=== PATIENT | male | born 1965 | race Hispanic/Latino ===

== ENCOUNTER 2017-07-31 13:48 | Inpatient (IN) | payer SELFPAY ==
[~2017-07-31] VITALS: Ht 162.6 cm; Wt 90.7 kg
[2017-07-31] MEDS ORDERED: SODIUM CHLORIDE 0.9% 1000ML 1,000 ML IV STA (13:50)
[2017-07-31] MEDS ORDERED: INSULIN REGULAR, HUMAN 100 UNIT/1 ML 3ML VIAL IV STA (14:01)
[2017-07-31] MEDS ORDERED: INSULIN REGULAR, HUMAN 100 UNIT/1 ML 3ML VIAL SQ ONE (14:15)
[2017-07-31 14:16] LABS: BASOPHILS # (AUTO) 0.1 (0.0-0.1); BASOPHILS % 0.6 % (0.0-1.0); EOSINOPHILS % 0.2 % (0.0-6.0); HEMATOCRIT 41.7 % (38.2-49.6); HEMOGLOBIN 14.7 g/dL (14.0-18.0); LYMPHOCYTES # (AUTO) 1.9 (1.0-3.2); LYMPHOCYTES % 20.2 % (18.0-39.1); MEAN CORPUSCULAR HEMOGLOBIN 31.2 pg (28-32); MEAN CORPUSCULAR HGB CONC 35.3 g/dL (31-35); MEAN CORPUSCULAR VOLUME 88.5 fL (81-99); MONOCYTES # (AUTO) 0.6 (0.2-0.8); MONOCYTES % 6.1 % (4.4-11.3); NEUTROPHILS # (AUTO) 6.8 (2.1-6.9); NEUTROPHILS % 72.5 % (38.7-80.0); PLATELET COUNT 293 x10e3/uL (140-360); RED BLOOD COUNT 4.71 x10e6/uL (4.3-5.7); RED CELL DISTRIBUTION WIDTH 11.9 % (11.7-14.4)
[2017-07-31 14:25] LABS: CLARITY,URINE CLEAR (CLEAR); COLOR,URINE YELLOW (YELLOW); LEUKOCYTE ESTERASE ,URINE NEGATIVE (NEGATIVE); NITRITE,URINE NEGATIVE (NEGATIVE); PROTEIN,URINE DIPSTICK NEGATIVE (NEGATIVE)
[2017-07-31 14:26] LABS: BILIRUBIN,URINE NEGATIVE (NEGATIVE); KETONES,URINE NEGATIVE (NEGATIVE); URINE UROBILINOGEN 0.2 mg/dL (0.2 - 1)
[2017-07-31 14:35] LABS: ALBUMIN 3.9 g/dL (3.5-5.0); ALBUMIN/GLOBULIN RATIO 0.8 (0.8-2.0); ANION GAP 16.4 mmol/L (8-16); CALCIUM 9.6 mg/dL (8.4-10.2); CREATININE, SERUM 1.89 mg/dL (0.72-1.25); POTASSIUM 4.4 mmol/L (3.5-5.1)
[2017-07-31 14:38] LABS: MUCUS,URINE FEW (RARE); RBC,URINE 0-5 /HPF (0-5); WBC,URINE (MAN) 0-5 /HPF (0-5)
[2017-07-31] MEDS ORDERED: ONDANSETRON HCL INJ 2 MG/ML VIAL IV PRN (15:30)
[2017-07-31] MEDS ORDERED: DEXTROSE 50% SYRINGE 50 ML IV PRN ×5 (15:30→18:15)
--- OUTSIDE RECORDS SUMMARY | 2017-07-31 15:43 | XMS REPORT ---
Author Author [facility] Address Unknown Phone Unavailable Care Team Providers Care Ladle Builder Name Role Phone Unavailable Unavailable Problems This patient has no known problems. Allergies, Adverse Reactions, Alerts This patient has no known allergies or adverse reactions. Medications This patient has no known medications. Encounters Start Date/Time End Date/Time Encounter Type Admission Type Attending [facility] Care Department Encounter ID 2017-08-15 00:00:00 2017-08-15 00:00:00 Outpatient [facility] [id number] 2017-08-04 00:00:00 2017-08-04 00:00:00 Outpatient [facility] [id number] 2017-08-01 00:00:00 2017-08-01 00:00:00 Outpatient [facility] [id number] 2017-07-30 14:34:59 2017-07-30 14:34:59 Outpatient [facility] [id number] 2017-07-30 12:53:01 2017-07-30 12:53:01 Outpatient [facility] [id number] 2017-05-26 06:46:48 2017-05-26 06:46:48 Outpatient [facility] [id number] 2017-03-06 13:25:15 2017-03-06 13:25:15 Outpatient [facility] [id number] 2016-10-28 13:19:03 2016-10-28 13:19:03 Outpatient [facility] [id number] 2016-10-03 15:18:27 2016-10-03 15:18:27 Outpatient [facility] [id number]
[2017-07-31] MEDS: SODIUM CHLORIDE 0.9% 1000ML 1,000 ML IV SCH ×2 (16:01→20:17)
[2017-07-31] MEDS ORDERED: BENZONATATE100 MG PO (16:04)
[2017-07-31] MEDS ORDERED: CETIRIZINE HCL5 MG (16:04)
[2017-07-31] MEDS ORDERED: NORVASC5 MG PO (16:04)
[2017-07-31] MEDS ORDERED: LEVOTHYROXINE50 MCG PO (16:04)
[2017-07-31] MEDS ORDERED: LISINOPRIL10 MG PO (16:06)
[2017-07-31] MEDS ORDERED: HYDROCHLOROTHIA25 MG (16:06)
[2017-07-31] MEDS ORDERED: ATORVASTATIN CA20 MG PO (16:06)
[2017-07-31] MEDS ORDERED: ONDANSETRON HCL 4 MG ORAL DISINTEGRATING TAB PO PRN (16:15)
[2017-07-31] MEDS ORDERED: INSULIN REGULAR, HUMAN 3ML VL 100 UNIT in SODIUM CHLORIDE 0.45% 100 ML 99 ML IV SCH ×2 (16:20)
[2017-07-31] MEDS ORDERED: INSULIN REGULAR, HUMAN 100 UNIT/1 ML 3ML VIAL SQ SCH (16:30)
[2017-07-31 19:41] VITALS: BP 132/93
[2017-07-31 20:00] VITALS: BP 125/75
[2017-07-31] MEDS ORDERED: INSULIN DETEMIR 100 UNIT/ML PEN SQ SCH (21:00)
[2017-07-31] MEDS: INSULIN LISPRO 100 UNIT/1 ML 3ML VIAL SQ SCH (21:21)
[2017-08-01] VITALS: BP 115/66
[2017-08-01] MEDS: SODIUM CHLORIDE 0.9% 1000ML 1,000 ML IV SCH ×2 (03:02→21:15)
[2017-08-01 04:00] VITALS: BP 131/72
[2017-08-01 06:14] LABS: BASOPHILS # (AUTO) 0.1 (0.0-0.1); BASOPHILS % 0.5 % (0.0-1.0); EOSINOPHILS # (AUTO) 0.1 (0.0-0.4); EOSINOPHILS % 1.1 % (0.0-6.0); HEMATOCRIT 37.2 % (38.2-49.6); HEMOGLOBIN 13.2 g/dL (14.0-18.0); MEAN CORPUSCULAR HEMOGLOBIN 31.2 pg (28-32); MEAN CORPUSCULAR HGB CONC 35.5 g/dL (31-35); MEAN CORPUSCULAR VOLUME 87.9 fL (81-99); MONOCYTES # (AUTO) 0.8 (0.2-0.8); MONOCYTES % 7.6 % (4.4-11.3); NEUTROPHILS # (AUTO) 6.3 (2.1-6.9); NEUTROPHILS % 61.1 % (38.7-80.0); PLATELET COUNT 253 x10e3/uL (140-360); RED BLOOD COUNT 4.23 x10e6/uL (4.3-5.7); RED CELL DISTRIBUTION WIDTH 11.8 % (11.7-14.4)
[2017-08-01 06:44] LABS: BLOOD UREA NITROGEN 18 mg/dL (7-26); BUN/CREATININE RATIO 17 (6-25); CALCIUM 8.5 mg/dL (8.4-10.2); CARBON DIOXIDE 26 mmol/L (22-29); CHLORIDE 101 mmol/L (98-107); CREATININE, SERUM 1.04 mg/dL (0.72-1.25); EST GLOMERULAR FILTRATION RATE > 60 ML/MIN (60-); GLUCOSE 221 mg/dL (74-118); SODIUM 134 mmol/L (136-145)
--- NOTE | 2017-08-01 07:04 | Diagnostic Imaging Report ---
EXAMINATION: CHEST SINGLE (PORTABLE) INDICATION: Diabetes. COMPARISON: None FINDINGS: TUBES and LINES: None. LUNGS: Lungs are well inflated. Lungs are clear. There is no evidence of pneumonia or pulmonary edema. PLEURA: No pleural effusion or pneumothorax. HEART AND MEDIASTINUM: The cardiomediastinal silhouette is unremarkable. BONES AND SOFT TISSUES: No acute osseous lesion. Soft tissues are unremarkable. UPPER ABDOMEN: No free air under the diaphragm. IMPRESSION: No acute thoracic abnormality. Signed by: Dr. Ramirez Beltrán M.D. on 08/01/2017 7:00 AM
[2017-08-01] MEDS ORDERED: INSULIN LISPRO 100 UNIT/1 ML 3ML VIAL SQ SCH ×2 (07:30→16:30)
[2017-08-01 08:00] VITALS: BP 171/106
[2017-08-01 08:40] LABS: ANISOCYTOSIS SLIGHT; LYMPHOCYTES % (MANUAL) 33 % (19-48); MONOCYTES % (MANUAL) 5 % (3.4-9.0); NEUTROPHILS % (MANUAL) 61 % (40-74); PLATELET ESTIMATE ADEQUATE; PLATELET MORPHOLOGY COMMENT NORMAL; RBC MORPHOLOGY COMMENT NORMAL
[2017-08-01] MEDS: INSULIN LISPRO 100 UNIT/1 ML 3ML VIAL SQ SCH ×6 (08:49→21:20)
[2017-08-01 12:00] VITALS: BP 138/94
[2017-08-01 12:47] LABS: FREE T4 (FREE THYROXINE) 1.24 ng/dL (0.9-1.8); THYROID STIMULATING HORMONE 1.717 uIU/mL (0.350-4.940)
--- NOTE | 2017-08-01 13:44 | Consultation ---
DATE OF CONSULTATION: August 01, 2017 ENDOCRINE CONSULTATION This is a patient of Dr. Brothers. Thank you very much for referring this patient. This is a 52-year-old gentleman who was referred to me for evaluation of uncontrolled diabetes mellitus. Patient tells me he is a known diabetic for the last several years and has been taking metformin. He was seen by one of the [facility] and was instructed that the blood sugar was extremely high. He was sent to the emergency room. In the emergency room, his blood sugar was 82, and anion gap was 16.4. The patient is also status post a CVA. Has history of hypertension and hyperlipidemia. The patient has been started on insulin here in the hospital. PHYSICAL EXAMINATION GENERAL: Today, the patient is alert, awake, a little bit apprehensive. He is moderately overweight. VITALS: His heart rate is around 78. Blood pressure 170/100. CHEST: Bilateral vesicular breathing. No rales heard. CARDIAC: First and 2nd heart sounds. There is no 3rd or 4th heart sound. Ejection systolic murmur grade 2/6. EXTREMITIES: Patient has evidence of diabetic sensory neuropathy in both lower extremities. ABDOMEN: He has a distended abdomen and umbilical hernia. CLINICAL IMPRESSION 1. Diabetes mellitus, type 2, uncontrolled with complications. 2. Status post cerebrovascular accident. 3. Hypertension. 4. Hyperlipidemia. The plan at this time is to do hemoglobin A1c and thyroid function test. Patient cannot afford the Levemir and Humalog insulin, so we will just put him on NPH and regular insulin. Thanks for referring this patient. Job#: [id number] RAUDEL ANGEOL
[2017-08-01 16:00] VITALS: BP 126/81
[2017-08-01 20:00] VITALS: BP 149/91
[2017-08-01] MEDS ORDERED: INSULIN DETEMIR 100 UNIT/ML PEN SQ SCH (21:00)
[2017-08-02] VITALS: BP 126/75
[2017-08-02 04:00] VITALS: BP 138/77
[2017-08-02] MEDS: SODIUM CHLORIDE 0.9% 1000ML 1,000 ML IV SCH ×2 (06:09→07:27)
[2017-08-02 08:00] VITALS: BP 134/94
== END 2017-08-02 11:50 | disposition home or self-care (01) | DRG 639 ==
LOC: ER 13:48 → ERHOLD 15:40 → MED/SURG2 18:25
DX: E11.65 Type 2 diabetes mellitus with hyperglycemia (principal); E78.5 Hyperlipidemia, unspecified; Z86.73 Personal history of transient ischemic attack (TIA), and cerebral infarction without residual deficits; E11.40 Type 2 diabetes mellitus with diabetic neuropathy, unspecified; Z79.84 Long term (current) use of oral hypoglycemic drugs
CPT/HCPCS: 36415; 71045; 80048; 80053; 81001; 82948; 83036; 84439; 84443; 85025; 99284; J7030

== ENCOUNTER 2018-01-02 21:27 | Emergency (ER) | payer MEDICARE, OTHER ==
[~2018-01-02] VITALS: Ht 162.6 cm; Wt 90.7 kg
[~2018-01-02 21:27] MED LIST: ATORVASTATIN CA20 MG PO; BENZONATATE100 MG PO; CETIRIZINE HCL5 MG; HYDROCHLOROTHIA25 MG; LEVOTHYROXINE50 MCG PO; LISINOPRIL10 MG PO; NORVASC5 MG PO
[2018-01-02] MEDS ORDERED: NITROGLYCERIN 2% OINT 1 GM PKT TOP ONE (22:00)
[2018-01-02] MEDS ORDERED: ASPIRIN 81 MG CHEW TAB PO ONE (22:00)
[2018-01-02 22:05] LABS: BASOPHILS # (AUTO) 0.1 (0.0-0.1); BASOPHILS % 0.6 % (0.0-1.0); EOSINOPHILS # (AUTO) 0.1 (0.0-0.4); EOSINOPHILS % 0.4 % (0.0-6.0); HEMATOCRIT 41.7 % (38.2-49.6); HEMOGLOBIN 13.9 g/dL (14.0-18.0); LYMPHOCYTES # (AUTO) 2.9 (1.0-3.2); LYMPHOCYTES % 19.8 % (18.0-39.1); MEAN CORPUSCULAR HEMOGLOBIN 31.2 pg (28-32); MEAN CORPUSCULAR HGB CONC 33.3 g/dL (31-35); MEAN CORPUSCULAR VOLUME 93.5 fL (81-99); MONOCYTES # (AUTO) 1.2 (0.2-0.8); MONOCYTES % 7.8 % (4.4-11.3); NEUTROPHILS # (AUTO) 10.5 (2.1-6.9); PLATELET COUNT 355 x10e3/uL (140-360); RED BLOOD COUNT 4.46 x10e6/uL (4.3-5.7); RED CELL DISTRIBUTION WIDTH 12.7 % (11.7-14.4)
[2018-01-02 22:24] LABS: INR 0.86; PROTHROMBIN TIME 12.5 seconds (11.9-14.5)
[2018-01-02 22:25] LABS: PARTIAL THROMBOPLASTIN TIME 27.3 seconds (23.8-35.5)
--- NOTE | 2018-01-02 22:32 | Diagnostic Imaging Report ---
EXAM: CHEST 2 VIEWS, PA and lateral INDICATION: Chest pain COMPARISON: AP view of the chest August 01, 2017 FINDINGS: LINES/TUBES: None LUNGS: No consolidations or edema. PLEURA: No effusions or pneumothorax. HEART AND MEDIASTINUM: Normal size and contour. BONES AND SOFT TISSUES: No acute findings. IMPRESSION: No acute thoracic abnormality. Signed by: Dr. Dee Ramirez M.D. on 01/02/2018 10:28 PM
[2018-01-02 22:42] LABS: ALANINE AMINOTRANSFERASE 18 IU/L (0-55); ALBUMIN 4.2 g/dL (3.5-5.0); ALKALINE PHOSPHATASE 105 IU/L (40-150); ANION GAP 14.8 mmol/L (8-16); BLOOD UREA NITROGEN 14 mg/dL (7-26); BUN/CREATININE RATIO 14 (6-25); CALCIUM 9.7 mg/dL (8.4-10.2); CARBON DIOXIDE 27 mmol/L (22-29); CHLORIDE 102 mmol/L (98-107); CREATINE KINASE 73 IU/L (30-200); EST GLOMERULAR FILTRATION RATE > 60 ML/MIN (60-); GLUCOSE 90 mg/dL (74-118); MAGNESIUM 1.9 MG/DL (1.3-2.1); POTASSIUM 3.8 mmol/L (3.5-5.1); SODIUM 140 mmol/L (136-145)
[2018-01-02 23:17] LABS: BILIRUBIN,URINE NEGATIVE (NEGATIVE); CLARITY,URINE CLEAR (CLEAR); COLOR,URINE YELLOW (YELLOW); KETONES,URINE NEGATIVE (NEGATIVE); LEUKOCYTE ESTERASE ,URINE NEGATIVE (NEGATIVE); MUCUS,URINE RARE (RARE); NITRITE,URINE NEGATIVE (NEGATIVE); PROTEIN,URINE DIPSTICK NEGATIVE (NEGATIVE); RBC,URINE 0-5 /HPF (0-5); URINE UROBILINOGEN 0.2 mg/dL (0.2 - 1); WBC,URINE (MAN) 0-5 /HPF (0-5)
[2018-01-02] MEDS ORDERED: CETIRIZINE HCL10 MG PO (23:55)
[2018-01-02] MEDS ORDERED: METFORMIN HCL500 M2 PO (23:55)
[2018-01-02] MEDS ORDERED: HYDROCHLOROTHIA25 MG PO (23:55)
[2018-01-02] MEDS ORDERED: ATORVASTATIN CA20 MG PO (23:55)
[2018-01-03 01:22] VITALS: BP 138/87
== END 2018-01-03 01:38 | disposition home or self-care (01) ==
LOC: ER 21:27
DX: R07.89 Other chest pain (principal); I10 Essential (primary) hypertension; E11.9 Type 2 diabetes mellitus without complications; E78.5 Hyperlipidemia, unspecified; E03.9 Hypothyroidism, unspecified; Z86.73 Personal history of transient ischemic attack (TIA), and cerebral infarction without residual deficits
CPT/HCPCS: 36415; 71046; 80053; 81001; 82550; 82553; 83735; 83880; 84484; 85025; 85379; 85610; 85730; 93005; 99284

== ENCOUNTER 2021-11-26 21:08 | Emergency (ER) | payer SELFPAY ==
[~2021-11-26] VITALS: Ht 162.6 cm; Wt 90.7 kg
[~2021-11-26 21:08] MED LIST changes: +CETIRIZINE HCL10 MG PO; +HYDROCHLOROTHIA25 MG PO; +METFORMIN HCL500 M2 PO
[2021-11-26] MEDS ORDERED: PREDNISONE20 MG PO (22:17)
[2021-11-26] MEDS ORDERED: VENTOLIN HFA18 GM INH (22:17)
[2021-11-26] MEDS ORDERED: AZITHROMYCIN250 MG PO (22:17)
== END 2021-11-26 22:23 | disposition home or self-care (01) ==
LOC: ER 21:15
DX: R50.9 Fever, unspecified (principal); U07.1 COVID-19; R05.9 Cough, unspecified; I10 Essential (primary) hypertension; E11.9 Type 2 diabetes mellitus without complications; E78.5 Hyperlipidemia, unspecified; E03.9 Hypothyroidism, unspecified; I69.351 Hemiplegia and hemiparesis following cerebral infarction affecting right dominant side
CPT/HCPCS: 99282

== ENCOUNTER 2024-12-04 16:44 | Emergency (ER) | payer SELFPAY ==
[~2024-12-04] VITALS: Ht 170.2 cm; Wt 102.1 kg
[~2024-12-04 16:44] MED LIST changes: +AZITHROMYCIN250 MG PO; +PREDNISONE20 MG PO; +VENTOLIN HFA18 GM INH
[2024-12-04 16:50] VITALS: TEMP 98.7
[2024-12-04] MEDS ORDERED: ONDANSETRON HCL INJ 2MG/ML 2ML 2 MG/ML VIAL IV PRN (17:15)
[2024-12-04 17:23] LABS: BASOPHILS % 0.3 % (0.0-1.0); EOSINOPHILS % 0.1 % (0.0-6.0); LYMPHOCYTES % 10.4 % (18.0-39.1); MONOCYTES % 5.9 % (4.4-11.3); NEUTROPHILS % 82.9 % (38.7-80.0); RED CELL DISTRIBUTION WIDTH 12.3 % (11.7-14.4)
[2024-12-04 17:46] LABS: EST GLOMERULAR FILTRATION RATE 90.0 ML/MIN (>=60)
[2024-12-04 18:10] LABS: LEUKOCYTE ESTERASE ,URINE MODERATE (NEGATIVE); PROTEIN,URINE DIPSTICK NEGATIVE (NEGATIVE); URINE UROBILINOGEN 0.2 mg/dL (0.2 - 1)
[2024-12-04] MEDS ORDERED: IOPAMIDOL 370 MG/ML 100 ML INFUS..BTL INJ ONE (18:11)
[2024-12-04 18:22] LABS: WBC,URINE (MAN) >50 /HPF (0-5)
[2024-12-04 18:23] LABS: EPITHELIAL CELLS,URINE FEW /LPF
[2024-12-04 18:36] VITALS: PULSE 86; RESP 18
[2024-12-04] MEDS: SODIUM CHLORIDE 0.9% 1000ML 1,000 ML IV STA (18:41)
[2024-12-04] MEDS ORDERED: CEFDINIR300 MG PO (19:05)
[2024-12-04] MEDS: CEFDINIR 300 MG CAP PO ONE (19:21)
[2024-12-04 19:22] VITALS: BP 124/65; PULSE 74; RESP 18; TEMP 98.9; O2SAT 98
== END 2024-12-04 19:23 | disposition home or self-care (01) ==
LOC: ER 17:02
DX: R10.33 Periumbilical pain (principal); K42.9 Umbilical hernia without obstruction or gangrene; N39.0 Urinary tract infection, site not specified; K76.0 Fatty (change of) liver, not elsewhere classified; I10 Essential (primary) hypertension; E11.65 Type 2 diabetes mellitus with hyperglycemia; E78.5 Hyperlipidemia, unspecified; E03.9 Hypothyroidism, unspecified; Z86.73 Personal history of transient ischemic attack (TIA), and cerebral infarction without residual deficits
CPT/HCPCS: 36415; 74177; 80053; 81001; 83690; 85025; 99284; J7030; Q9967